=== PATIENT | female | born 1980 | race Caucasian/White ===

== ENCOUNTER 2024-01-29 13:39 | Outpatient (CLI) | payer BC, SELFPAY ==
[2024-01-29 18:29] LABS: Basophils # 0.1 K/mm3 (0-0.2); Basophils % 0.6 % (0.1-2.0); Eosinophils # 0.2 K/mm3 (0.0-0.4); Hematocrit 40.6 % (37.0-47.0); Hemoglobin 12.4 g/dL (12.2-16.2); Lymphocytes # 2.1 K/mm3 (0.7-4.5); Lymphocytes % 25.3 % (10-50); Mean Corpuscular HGB Conc 30.6 g/dL (31.8-35.4); Mean Corpuscular Volume 84.9 fl (81-99); Monocytes # 0.3 K/mm3 (0.1-1.0); Monocytes % 3.7 % (1.7-9.3); Neutrophils # 5.6 K/mm3 (1.8-7.8); Neutrophils % 68.4 % (37.0-80.0); Platelet Count 267 K/mm3 (142-424); Red Blood Count 4.78 M/mm3 (4.20-5.40); Red Cell Distribution Width 15.9 % (11.5-17.5); White Blood Count 8.2 K/mm3 (4.8-10.8)
[2024-01-29 18:56] LABS: Alanine Aminotransferase 20 U/L (12-78); Albumin Level 3.8 g/dl (3.5-5.0); Albumin/Globulin Ratio 1.2 (1.1-1.8); Alkaline Phosphatase 70 U/L (38-126); Aspartate Amino Transferase 27 U/L (14-36); Bilirubin,Total 0.4 mg/dl (0.2-1.3); Blood Urea Nitrogen 16 mg/dl (7-17); Carbon Dioxide 29 mmol/L (22.0-30.0); Chloride 105 mmol/L (98-107); Chol/HDL Ratio 4.1 (1-3.5); Cholesterol 211 mg/dl (140-200); Estimated Glomerular Filt Rate 79 ml/min (>60); GFR (African American) 96 ML/MIN (>60); Globulin 3.2 g/dL (1.3-3.2); Glucose 92 mg/dl (74-100); HDL Cholesterol 51 mg/dl (40-60); Sodium 136 mmol/L (136-145); Triglycerides 150 mg/dl (30-150); VLDL Cholesterol 30 mg/dL (0-40)
[2024-01-29 19:07] LABS: Direct LDL Cholesterol 123.36 mg/dL (100-129)
[2024-01-29 19:16] LABS: Hemoglobin A1C 5.4 % (4.0-6.0)
[2024-01-29 19:24] LABS: Thyroid Stimulating Hormone 1.53 uIU/mL (0.465-4.68)
== END 2024-01-29 23:59 | disposition home or self-care (01) ==
LOC: LAB.DROPOF 02-01 12:41
PROVIDERS: PCP Family Medicine; Visit Provider Family Medicine
DX: R53.83 Other fatigue (principal); I10 Essential (primary) hypertension; R73.03 Prediabetes; E66.3 Overweight; Z68.41 Body mass index [BMI] 40.0-44.9, adult
CPT/HCPCS: 80050; 80053; 80061; 83036; 84443; 85025

== ENCOUNTER 2024-02-17 12:37 | Outpatient (CLI) | payer BC, SELFPAY ==
--- NOTE | 2024-02-17 12:53 | CA_ITS ---
APPROVED REPORT EXAM: Comprehensive 2D, Doppler, and color-flow Echocardiogram Precision Lens Polisher: Mary Alice Sol, ELIZABETH, RVS Ht: 5 ft 2 in Wt: 247lbs BSA: 2.09 BP: 120/80 mmHg Indications: Murmur, HTN, Migraines 2D Dimensions Left Atrium 3.21 cm F: 2.7 - 3.8 LA Volume 73.30 mL LA Volume Index [id number] mL/m2 (M/F) 16-34 M-Mode Dimensions RVDd 2.38 cm (0.9-2.6) LA Diam 3.80 cm (1.9-4.0) LVDd 4.02 cm (3.5-5.7) LVDs 2.31 cm (3.5-5.7) IVSd 0.87 cm (0.6-1.1) PWd 0.77 cm (0.6-1.1) EF (Teich) 74.20% EPSs 0.37 cm FS 42.50% EDV (Teich) 70.80 mL TAPSE 2.21 (<1.7) ESV (Teich) 18.30 mL LV Diastology E Decel Time 213 (160-240 msec) E/A Ratio 2.09 MED A' 10.80 cm/s LAT A' 9.70 cm/s Aortic Valve BRAD Index 1.19 cm2/m2 AoV Peak Angel. 144.0 (50-130 cm/s) AO Peak GR. 8.30 mmHg AO Mean GR. 4.10 (<5 mmHg) AO VTI 28.8 (18-25 cm) BRAD (VTI) 2.55 (2.5-4.5 cm2) Mitral Valve MV A Velocity 47.0 (40-130 cm/s) E/A Ratio 2.09 Pulmonary Valve RI End VMAX 149.0 cm/s Tricuspid Valve TR P. Velocity 249.00 cm/s RAP Estimate 10.00 mmHg RVSP 34.80 mmHg Left Ventricle The left ventricle is normal size. The left ventricular systolic function is normal. The left ventricular ejection fraction is within the normal range. Proximal septal thickening is noted. IVSD 1.3 cm. No evidence of LVOT obstruction at rest. There is normal LV segmental wall motion. The left ventricular diastolic function is normal. LVEF is 55%. Right Ventricle The right ventricle is normal size. The right ventricular systolic function is normal. Atria The left atrium size is normal. The right atrium size is normal. There is no Doppler evidence of interatrial shunt. Aortic Valve Aortic valve opens well. There is no aortic valvular stenosis. No aortic regurgitation is present. Mitral Valve The mitral valve is normal in structure. No evidence of systolic anterior motion of the mitral valve leaflets. No evidence of mitral valve stenosis. Mild mitral regurgitation. Tricuspid Valve The tricuspid valve leaflets are thin and pliable. Mild tricuspid regurgitation. RVSP is 20-25 mmHg. Pulmonic Valve The pulmonary valve is normal in structure. Trace pulmonic regurgitation. Great Vessels The aortic root is normal in size. The ascending aorta is not well-visualized. IVC is normal in size and collapses >50% with inspiration. Pericardium There is no pericardial effusion. Other Information Study Quality: Adequate Conclusion Normal biventricular systolic function. Proximal septal thickening is present. IVSD 1.3 cm. Mild MR, mild TR. No evidence of LVOT obstruction at rest. No evidence of systolic anterior motion (АЛЕКСАНДР) of the MV leaflets. In the setting of asymmetric increased LV wall thickness, further evaluation with cardiac MRI (HCM protocol) is suggested to evaluate for HCM. Electronically signed by : Jailyn Perry MD 02/18/2024 11:48:39
== END 2024-02-17 23:59 | disposition home or self-care (01) ==
PROVIDERS: PCP Family Medicine; Visit Provider Family Medicine
DX: R01.1 Cardiac murmur, unspecified (principal)
CPT/HCPCS: 93306

== ENCOUNTER 2024-03-09 09:46 | Outpatient (CLI) | payer BC, SELFPAY ==
[2024-03-09 10:28] LABS: Blood Urea Nitrogen 14 mg/dl (7-17); Estimated Glomerular Filt Rate 79 ml/min (>60); GFR (African American) 96 ML/MIN (>60)
--- NOTE | 2024-03-09 10:32 | MR_ITS ---
APPROVED REPORT Md Ophthalmologist: CLINICAL INDICATION Increased LV wall thickness. HCM evaluation. TECHNIQUE Image Acquisition: Cardiac magnetic resonance (CMR) was performed on Siemens Espree MRI 1.5T scanner. Software platform sequences were performed using the [employer] MR B19 platform. A set of three-plane, low-resolution, large [id number] localizers were initially acquired. Then axial, coronal, sagittal TrueFISP, as well as axial HASTE images, were obtained. These were followed by gated TrueFISP breathold cinematic sequences obtained in the short axis with 8 mm slices and 2 mm gaps, 2-chamber (vertical long axis), 3-chamber, 4-chamber (horizontal long axis). A bolus of contrast was injected intravenously with first-pass sequences obtained in the short axis and four-chamber planes. After approximately 10 minutes, a TI associate faculty sequence was performed to determine the optimal TI time. Using the optimized TI time, delayed contrast enhancement segmented inversion???recovery TurboFLASH sequences were obtained in the short axis, 2-chamber, 3-chamber, and 4-chamber projections. 2D-velocity phase mapping was performed. Functional parameters were calculated by offline analysis on an independent workstation ([employer], [employer] [employer]). Contrast: ProHance??? (Gadoteridol) FINDINGS MORPHOLOGY AND FUNCTION Left ventricle: The left ventricle is normal in size. The indexed left ventricular end-diastolic volume (LVEDVi) is 52 ml/m2 (reference range 57-105 ml/m2 in males, 56-96 ml/m2 in females). Normal left ventricular systolic function is present. There is mild asymmetric increase in proximal septal thickness, measuring up to 13 mm. there are no regional wall motion abnormalities noted. LVEF is calculated at 64.5% (reference range 57-77%). Right ventricle: The right ventricle is normal in size. The indexed right ventricular end-diastolic volume (RVEDVi) is 46 ml/m2 (reference range 61-121 ml/m2 in males, 48-112 ml/m2 in females). Normal right ventricular systolic function is present. RVEF is calculated at 51.0% (reference range 52-72% in males, 51-71% in females). Atria: The left atrium is normal in size. The maximum indexed left atrial volume is 25 ml/m2 (reference range 26-52 ml/m2 in males, 27-53 ml/m2 in females). The right atrium is normal in size. The maximum indexed right atrial volume is 18 ml/m2 (reference range 18-90 ml/m2). Aorta: The diameter of the aortic annulus is normal, measuring 22 mm (coronal view reference range 21-30 mm in males, 19-27 mm in females). The diameter of the aortic sinus is normal, measuring 28 mm (coronal view reference range 25-42 mm in males, 24-36 mm in females). The diameter of the sinotubular junction is normal, measuring 21 mm (coronal view reference range 18-32 mm in males, 18-28 mm in females). The diameters of the ascending and descending thoracic aorta are normal. Main pulmonary artery: The main pulmonary artery diameter is normal. Pericardium: The pericardial thickness is normal. The pericardial thickness measures 1.0 mm (normal < 4.0 mm). There is no pericardial effusion. VALVES The valvular morphologies in the visualized sequences appear normal. There is no significant valvular stenosis or regurgitation of the mitral, aortic, tricuspid, or pulmonic valve noted visually. Systolic anterior motion of the mitral valve is not visualized. Ratio of pulmonary to systemic flow, Qp:Qs ratio could not be calculated in the study due to technical limitations. TISSUE CHARACTERIZATION Resting Perfusion: Normal myocardial blood flow at rest. No evidence of resting hypoperfusion. Myocardial Fibrosis and/or edema: There is a minimal patchy late gadolinium enhancement is noted in the basal septal LV wall, occupying < 2% of the total myocardial thickness. T2-weighted imaging demonstrates no evidence of myocardial edema or inflammation. OTHER No other significant findings are noted. However, this exam is focused on the cardiac structure and function. IMPRESSION Normal LV size with normal LV systolic function. LVEDVi= 52 ml/m2 and LVEF= 64.5%. Mild asymmetric increase in proximal septal thickness, measuring up to 13 mm. there are no regional wall motion abnormalities noted. Normal RV size with normal RV systolic function. RVEDVi= 46 ml/m2 and RVEF= 51.0%. No atrial enlargement. Minimal patchy late gadolinium enhancement is noted in the basal septal LV wall, occupying < 2% of the total myocardial thickness. These findings are nonspecific in this clinical context. Perfusion analysis demonstrates normal blood flow at rest with no evidence of resting hypoperfusion. Overall, this CMR demonstrates normal biventricular size and systolic function. There is mild asymmetric increase in proximal septal thickening, along with minimal patchy LGE in the region. Findings do not meet CMR criteria for HCM (i.e. LV wall thickness < 15 mm). Nonetheless, in the setting of presence of LGE, repeat CMR evaluation in 3-5 years is suggested to evaluate for progression of LV wall thickness and progression of LGE. COMPARISON None CRITICAL RESULT None COMMUNICATION Per this written report The findings of this cardiac MR were reviewed, reported, and signed by Gary Perry MD (Slp). Conclusion Electronically signed by : Jailyn Perry MD 03/17/2024 12:18:20
--- NOTE | 2024-03-09 10:38 | CA_ITS ---
APPROVED REPORT Exam: Exercise Treadmill Technologist: Nena Chase Ht: 5 ft 2 in Wt: 246 lbs BSA: 2.09 m2 HR: 74 bpm BP: 119/71 mmHg Indications: Chest pain, dyspnea, MRI LV wall thickness Medical History Medications: Diazepam,,,,, Citalopram,,,,, Ibuprofen,,,,, Stress Test Details Test: Nigel HR Resting HR: 79 bpm Max Heart Rate (APMHR): 179 bpm Max HR Achieved: 174 bpm Target HR (85% APMHR): 152 bpm % of APMHR: 97 Recovery HR: 107 bpm HR response to stress: Normal HR response to stress BP Resting BP: 119.0/71.0 mmHg Max BP: 162.0/78.0 mmHg Recovery BP: 129.0/66.0 mmHg BP response to stress: Normal blood pressure response to stress. ECG Resting ECG: Normal sinus rhythm Stress ECG: No significant ST changes Arrhythmia: PVCs Clinical Exercise duration: 06:49 min Highest Stage Achieved: Exercise capacity: 7.0 METs Stress ECG Conclusion Patient exercised 6:49 on Nigel Protocol. Test stopped due to shortness of air. Symptoms: No chest pain Arrhythmias/Ectopy: Rare PVC ST-T Changes: Normal ST response to exercise Conclusion: Normal GXT. GXT only (no imaging). Test Summary REST . . . . . . . Sitting REST . . . . . . . Standing REST 04:38 0.0 0.0 79 . 119/ 71 . . Stage 1 01:00 10.0 1.7 115 . . . . Stage 1 02:00 10.0 1.7 136 . . . . Stage 1 03:00 10.0 1.7 144 . 142/ 80 . . Stage 2 01:00 12.0 2.5 155 . . . . Stage 2 . . . . . . . Shortness of Breath Stage 2 02:00 12.0 2.5 162 . . . . Stage 2 03:00 12.0 2.5 165 . 162/ 78 . . Stage 3 00:49 14.0 3.4 173 . . . Stop exercise at 06:49 RECOVERY 01:00 0.0 0.0 152 . . . . RECOVERY 02:00 0.0 0.0 132 . . . . RECOVERY 03:00 0.0 0.0 117 . . . . RECOVERY 04:00 0.0 0.0 108 . 133/ 67 . . RECOVERY 05:00 0.0 0.0 107 . 133/ 67 . . RECOVERY 05:25 0.0 0.0 105 . 129/ 66 . . Electronically signed by : Jailyn Perry MD 03/10/2024 13:21:16
[2024-03-09] MEDS: SODIUM CHLORIDE 0.9% 10ML SYR (RAD ONLY) 10 ML IV (12:51)
[2024-03-09] MEDS: SODIUM CHLORIDE 0.9% 50ML BAG 50 ML IV (12:51)
[2024-03-09] MEDS: GADOTERIDOL INJ 20ML SYRINGE 22 ML IV (12:51)
== END 2024-03-09 23:59 | disposition home or self-care (01) ==
PROVIDERS: PCP Family Medicine; Visit Provider Nurse Practitioner Family
DX: R07.89 Other chest pain (principal); R06.00 Dyspnea, unspecified; R93.1 Abnormal findings on diagnostic imaging of heart and coronary circulation; R73.03 Prediabetes; I10 Essential (primary) hypertension
CPT/HCPCS: 36415; 75561; 82565; 84520; 93017; 93018; A9576

== ENCOUNTER 2024-08-01 15:55 | Outpatient (CLI) | payer BC, SELFPAY ==
[2024-08-01 20:20] LABS: Albumin Level 4.5 g/dl (3.5-5.0); Chloride 102 mmol/L (98-107); Potassium 4.7 mmoL/L (3.5-5.1); Sodium 135 mmol/L (136-145)
[2024-08-01 20:22] LABS: Blood Urea Nitrogen 16 mg/dl (7-17); Estimated Glomerular Filt Rate 69 ml/min (>60); GFR (African American) 83 ML/MIN (>60)
[2024-08-01 20:23] LABS: Alanine Aminotransferase 25 U/L (12-78); Albumin/Globulin Ratio 1.7 (1.1-1.8); Alkaline Phosphatase 86 U/L (38-126); Anion Gap 10.7 mEq/L (5-15); Aspartate Amino Transferase 27 U/L (14-36); Bilirubin,Total 0.2 mg/dl (0.2-1.3); Calcium 9.2 mg/dl (8.4-10.2); Carbon Dioxide 27 mmol/L (22.0-30.0); Cholesterol 197 mg/dl (140-200); Globulin 2.6 g/dL (1.3-3.2); Glucose 85 mg/dl (74-100); Total Protein,Serum 7.1 g/dl (6.3-8.2); Triglycerides 141 mg/dl (30-150); VLDL Cholesterol 28 mg/dL (0-40)
[2024-08-01 20:24] LABS: Chol/HDL Ratio 4.2 (1-3.5); HDL Cholesterol 47 mg/dl (40-60)
[2024-08-01 20:34] LABS: Direct LDL Cholesterol 104.95 mg/dL (100-129)
== END 2024-08-01 23:59 | disposition home or self-care (01) ==
LOC: LAB.DROPOF 08-02 15:24
PROVIDERS: PCP Family Medicine; Visit Provider Family Medicine
DX: R07.89 Other chest pain (principal); I10 Essential (primary) hypertension
CPT/HCPCS: 80053; 80061

== ENCOUNTER 2024-12-26 15:45 | Outpatient (CLI) | payer BC, SELFPAY ==
[2024-12-26 19:49] LABS: Hematocrit 36.0 % (37.0-47.0); Hemoglobin 11.3 g/dL (12.2-16.2); Immature Granulocytes % 0.3 %; Mean Corpuscular HGB Conc 31.4 g/dL (31.8-35.4); Mean Corpuscular Hemoglobin 25.3 pg (27.0-31.2); Mean Corpuscular Volume 80.7 fl (81-99); Nucleated Red Blood Cells % 0 %; Platelet Count 298 K/mm3 (142-424); Red Blood Count 4.46 M/mm3 (4.20-5.40); Red Cell Distribution Width-SD 43.8 fL; White Blood Count 12.6 K/mm3 (4.8-10.8)
[2024-12-26 20:17] LABS: Chloride 99 mmol/L (98-107)
[2024-12-26 20:18] LABS: Albumin Level 4.3 g/dl (3.5-5.0); Potassium 4.0 mmoL/L (3.5-5.1); Sodium 136 mmol/L (136-145)
[2024-12-26 20:20] LABS: Blood Urea Nitrogen 18 mg/dl (7-17); Creatinine,Serum 0.70 mg/dl (0.52-1.04); Estimated Glomerular Filt Rate 92 ml/min (>60); GFR (African American) 111 ML/MIN (>60)
[2024-12-26 20:21] LABS: Alanine Aminotransferase 23 U/L (12-78); Albumin/Globulin Ratio 1.8 (1.1-1.8); Alkaline Phosphatase 74 U/L (38-126); Anion Gap 13.0 mEq/L (5-15); Aspartate Amino Transferase 25 U/L (14-36); Bilirubin,Total 0.4 mg/dl (0.2-1.3); Calcium 9.1 mg/dl (8.4-10.2); Carbon Dioxide 28 mmol/L (22.0-30.0); Globulin 2.4 g/dL (1.3-3.2); Glucose 110 mg/dl (74-100); Total Protein,Serum 6.7 g/dl (6.3-8.2)
[2024-12-26 20:55] LABS: Thyroid Stimulating Hormone 1.71 uIU/mL (0.465-4.68)
[2024-12-27 09:54] LABS: Iron 59 ug/dL (37-170)
[2024-12-27 10:03] LABS: Total Iron Binding Capacity 341 ug/dL (265-497)
[2024-12-27 10:30] LABS: Ferritin 11.6 ng/ml (6.24-137)
--- OUTSIDE RECORDS SUMMARY | 2024-12-27 13:34 | XMS_ITS | Clinical Summary ---
Author Organization [facility] Address [address] [place] [address] Care Team Providers Care Licensed Insurance Sales Agent Name Role Phone Jael Calderon MD Primary Care Provider [phone] Allergies No known active allergies Medications lisinopril-hydrochl orothiazide (PRINZIDE,ZESTORETI C) 10-12.5 MG per tablet Take 1 tablet by mouth Daily. 4 Active citalopram (CeleXA) 40 MG tablet Take 1 tablet by mouth Daily. 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 May repeat in 2 hours if needed Active ibuprofen (ADVIL,MOTRIN) 800 MG tablet Take 1 tablet by mouth Every 8 (Eight) Hours As Needed for Mild Pain. 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 She admits to taking more ibuprofen than recommended. We discussed appropriate dosing and risk associated with taking too much. Can add tylenol with ibuprofen. Declines contraception for menstrual control. Hx BTL RTO for U/S Visit for oral contraceptive prescription 2021 Overview (07/25/2021): Rx Slynd to regulate menses. Retroverted uterus 01/24/2021 Mass of left ovary 01/23/2021 Overview (07/25/2021): U/s 01/18/2021 with small 5 x 8 mm echogenic non-shadowing nodule left ovary. Resolved on u/s 07/25/2021 Assessment & Plan (01/24/2021 10:56 AM EDT): Repeat u/s scheduled for 6 months. DUB (dysfunctional uterine bleeding) 12/13/2020 Overview (07/25/2021): Pt with irregular menses and weight gain since delivery Jun 2020; Onset heavy bleeding and clots and tissue on 12/10/20. Rx Provera 10 mg 14 days on off. U/s 01/23/21 normal except for small IM fibroid. Labs c/w anovulation. May wish to check fasting insulin. 07/25/2021; Pt took provera for three cycles with resolution of AUB. Is now having monthly menses; last 5-7 days. Can try Slynd to prevent recurrence of DUB. Assessment & Plan (08/22/2021 4:50 PM EDT): Just completed first package of Slynd. We will need 2-3 cycles to see if improves. Assessment & Plan (07/25/2021 11:04 AM EST): Wants to start SYLYD; return in 3 months for f/u. Assessment & Plan (01/24/2021 10:55 AM EDT): After first 14 days of Provera pt had 5 -6 day w/d menses; heavy for 2 days. 01/24/21; currently on Day 7 of second cycle of Provera. No BTB. Pt declines Mirena IUD at this time and Cant take OCs due to HTN and age. S/p prior BTL. Pt wants to watch menses and see if return to normal. Would recommend Mirena IUD for care home treatment of DUB> Weight gain 12/13/2020 Overview (12/13/2020): 60 lb weight gain since . Recommended low carb diet and exercise. Screening for cervical cancer 08/02/2020 Overview (08/29/2021): Pap done 02/23/2020. Normal 08/22/2021 Pap smear with ASCUS. HPV high risk pool negative. Can repeat in 1 year. Assessment & Plan (07/25/2021 11:07 AM EST): Return for annual and Pap smear. Ectopic breast tissue 08/02/2020 Overview (08/02/2020): Patient had bilateral engorgement of axillary breast tissue July 2020. Resolved spontaneously. History of female sterilization 05/24/2020 Overview (10/11/2020): KMAP permit 05/24/2020 Laparoscopic bilateral tubal banding on 09/11/2020 at [facility]; normal pelvis. No evidence of endometriosis. Assessment & Plan (08/09/2020 9:57 AM EDT): Preop 09/01. Assessment & Plan (08/02/2020 11:19 AM EDT): Schedule lap BTL 8 wks post if BP controlled. Essential hypertension 02/23/2020 Overview (08/30/2020): Patient stopped medications July 2019. Post Gestational HTN; On Procardia XL 30 mg bid. Assessment & Plan (08/22/2021 4:49 PM EDT): BP stable on Procardia XL 60 mg daily. Tolerating well. She will continue with that until she can be seen by PCP. Morbid obesity with BMI of 40.0-44.9, adult Overview (07/25/2021): BMI 37> 39> 41 Anxiety Overview (08/02/2020): 08/02/2020; 4 weeks . Wishes to restart Celexa 20 mg daily Assessment & Plan (08/09/2020 9:58 AM EDT): Improved on Celexa 20 mg daily. HTN (hypertension) Overview (07/25/2021): Has been stable on Procardia XL 30 mg bid since post period. Wishes to continue. 07/25/2021 Pt has not seen PCP and ran out of Procardia XL. BP 166/110 today; Restart Procardia XL 60 mg daily; F/u with PCP. Depression Overview (07/25/2021): Request refill of Celexa Mixed stress and urge urinary incontinence Overview (07/25/2021): Has frequency and urgency with stress UI. Needs appt with Urology. States has had some improvement with taking mother's oral medication. Assessment & Plan (08/22/2021 4:51 PM EDT): Requests referral to see urology. Resolved Problems Problem Noted Date Diagnosed Date Resolved Date Ectopic breast tissue 07/19/20202020 Overview (07/19/2020): Right 3 x4 cm. Preeclampsia in period 07/12/2020 01/29/2024 Overview (08/09/2020): Severe hypertension day #1. Treated with 24 hours magnesium sulfate; Procardia XL 60 mg twice daily. Decreased to once daily. > 2x daily 08/09/20; Decreased to 30 mg bid. Assessment & Plan (01/24/2021 10:37 AM EDT): BP stable on Procardia XL 30 mg bid. Assessment & Plan (08/16/2020 9:59 AM EDT): HTN is stable; pt was unable to get Procardia XL 30 mg from Pharmacy; Resent 30mg bid. Monitor BP at home. RTC 2 wk. Assessment & Plan (07/26/2020 10:34 AM EST): Improving; Pt states BP stable at home on Procardia XL 60 mg daily. Will continue with same dose. Recheck BP one week. Spontaneous vaginal delivery 07/09/2020 08/02/2020 Overview (08/02/2020): IOL; 07/09/2020; at 37 wks; Gestational hypertension 07/08/2020 AMA (advanced maternal age) multigravida 35+ 10/11/2020 Overview (07/08/2020): Late care at 17 wks; Declined screening. GBS (group B Streptococcus c praful), +RV culture, currently 07/03/2020 12/13/2020 Gestational hypertension, third trimester 06/28/2020 12/13/2020 Overview (06/28/2020): BP>140/90 in office with 1+ proteinuria and edema. Assessment & Plan (07/05/2020 12:23 PM EST): IOL at 37 wks if not severe; Induction scheduled 07/08/2020 at 5 PM COVID screen 219 at 9:45 AM Alysheba Excessive growth affec ting management of in third trimester 06/21/2020 10/12/19 Overview (06/21/2020): 80% ; AC 90%; at 35 wks. Assessment & Plan (06/21/2020 11:44 AM EST): IOL at 39 wks. Excessive growth affec ting management of in third trimester 05/24/2020 10/12/19 Overview (05/24/2020): 74 % at 30 wk; G1 6#4 at 36 6/7 wk 1 hr Glucose elevated; could not tolerate 3 hr GTT./ presyncope; vomiting. Will need to monitor BGs. Diet controlled gestational diabetes mellitus (GDM), antepartum 05/24/2020 10/11/2020 Overview (06/14/2020): Gestational diabetes A1 Received diabetic teaching and diet. Monitor fasting and 2-hour postprandial FS BGS. Iron deficiency anemia marino voss to inadequate dietary iron intake 05/24/2020 Overview (05/24/2020): 31%; On FE SO4 325 mg bid. History of delivery 02/23/2020 10/11/2020 Overview (05/24/2020): 36 6/7 weeks male 6 pounds 4 ounces on 04/30/2014 02/23/2020 10/11/2020 Overview (02/23/2020): Maternal blood type a positive. Late care/irregular periods; dates by 17-week ultrasound. PT had mild COVID infection prior to . Obesity (BMI 35.0-39.9 without comorbidity) 02/23/2020 10/11/2020 Overview (08/30/2020): BMI 37 Family History Medical History Relation Name Comments Hypertension Father Dev Hypertension Maternal Grandmother Sunitha Breast cancer Other 1 Maternal Great Aunt Hypertension Paternal Grandfather Dads dad Colon cancer Neg Hx Ovarian cancer Neg Hx Uterine cancer Neg Hx Relation Name Status Comments Father Dev Maternal Grandmother Sunitha Other 1 Maternal Great Aunt Alive Other 2 Maternal Great AUnt Alive Paternal Grandfather Dads dad Social History Tobacco Use Types Packs/Day Years Used Date Smoking Tobacco: Never Smokeless Tobacco: Never Tobacco Cessation:Counseling Given: Not Answered Alcohol Use Standard Drinks/Week Comments Not Currently 0 (1 standard drink = 0.6 oz pure alcohol) I rarely every drink. If i do its like 1 beer. PHQ-2 Answer Date Recorded Retired Total Score 0 08/02/2020 Hunger Vital Sign Answer Date Recorded Within the past 12 months, y ou worried that your food would run out before you got the money to buy more. Never true 06/28/19 21 Within the past 12 months, t he food you bought just didn't last and you didn't have money to get more. Never true 06/28/2020 PRAPARE - Transportation Answer Date Re corded In the past 12 months, has l ack of transportation kept you from medical appointments or from getting medications? No 06/18 In the past 12 months, has l ack of transportation kept you from meetings, work, or from getting things needed for daily living? No 06/28/2020 [place] Depression Scale Answer Date Recorded [place] Depression Scale Total 3 07/10/2020 The thought of harming myself has occurred to me . Never 07/10/2020 Abuse Screen Answer Date Recorded Unsafe at Home or Work/School Not on file Feels Threatened by Someone? Not on file 02/2023 Does Anyone Keep You from Co ntacting Others or Doint Things Outside the Home? Not on file 02/24/2023 Physical Sign of Abuse Present Not on file 1 Housing Stability Answer Date Recorded Current Living Arrangements Not on file 02/15 Potentially Unsafe Housing Conditions Not on jeffry e 02/24/2023 Family and Community Support Answer Jarad e Recorded Help with Day-to-Day Activities Not on file 02/24/2023 Lonely or Isolated Not on file 02/24/2023 Employment Answer Date Recorded Do you want help finding or keeping work or a stefania b? Not on file 02/24/2023 Disabilities Answer Date Recorded Concentrating, Remembering, or Making Decisions Difficulty Not on file 02/24/2023 Doing Errands Independently Difficulty Not on fi le 02/24/2023 Education Answer Date Recorded Help with school or training? 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 on file Not on file Last Filed Vital Signs Vital Sign Reading Time Taken Comments Blood Pressure 122/80 01/26/2024 11:34 AM EDT Pulse 98 07/13/2020 7:45 AM EST Temperature 36.3 C (97.3 F) 10/11/2020 10:08 AM EDT Respiratory Rate 20 07/13/2020 7:45 AM EST Oxygen Saturation 98% 07/13/2020 7:45 AM EST Inhaled Oxygen Concentration - - Weight 110 kg (243 lb) 01/26/2024 11:34 AM EDT Height 160 cm (5' 3 ) 01/26/2024 11:34 AM EDT Body Mass Index 43.05 01/26/2024 11:34 AM EDT Plan of Treatment Health Maintenance Due Date Last Done Comments ANNUAL PHYSICAL 02/22/2020 COVID-19 Vaccine ( season) 2024 Annual Gynecologic Pelvic and Breast Exam 09/22/2024 09/22/2023 INFLUENZA VACCINE 02/15/2025 02/03/2017, 03/13/2016 MAMMOGRAM 11/22/2025 11/23/2023, 10/26/2023 PAP SMEAR 09/21/2026 09/22/2023, 08/16, 02/24/2020, Additional history exists TDAP/TD VACCINES (2 - Td or Tdap) 05/22/2030 05/22/2020 HEPATITIS C SCREENING Completed 02/23/2020 Pneumococcal Vaccine 0-49 Aged Out No longer eligible based on patient's age to complete this topic Procedures Procedure Name Priority Date/Time Associated Diagnosis Comments MAMMO DIAGNOSTIC DIGITAL TOMOSYNTHESIS LEFT W CAD Routine 11/23/2023 2:18 PM EDT Abnormal mammogram LIQUID-BASED PAP SMEAR WITH HPV GENOTYPING REGARDLESS OF INTERPRETATION, [facility] (YONAS,COR,MAD) Routine 09/22/2023 11:36 AM EDT Women's annual routine gynecological examination HEPATITIS C ANTIBODY Routine 02/23/2020 12:00 PM EDT 17 weeks gestation of from Last 3 Months or Most Recently Relevant to Health Maintenance Results * Mammo Diagnostic Digital Tomosynthesis Left With CAD (11/23/2023 2:18 PM EDT) Anatomical Region Laterality Modality Breast Left Mammography 11/23/2023 2:12 PM EDT Impressions 11/23/2023 2:38 PM EDT 1. Left breast: Asymmetric island of glandular tissue in the 2/3:00 left breast. No suspicious abnormality is seen. As this was the patient's baseline mammogram, recommendation is for follow-up diagnostic left mammogram in 6 months to ensure stability/establish baseline. 2. Today's findings and recommendations were discussed with the patient at the time of the examination by myself. OVERALL ASSESSMENT: BI-RADS Category 3: Probably benign. Recommend short-term follow-up diagnostic left mammogram in 6 months. Physicians Order Diagnostic left mammogram in 6 months. Diagnosis: Short-term follow-up probably benign findings. This report was finalized on 11/23/2023 2:38 PM by Adelia Coffey MD. Narrative 11/23/2023 2:38 PM EDT EXAM: MAMMO DIAGNOSTIC DIGITAL TOMOSYNTHESIS LEFT W CAD, Limited left breast ultrasound- DATE:11/23/2023 2:11 PM INDICATION: 43-year-old female who presents for diagnostic work-up of focal asymmetry in the upper outer quadrant of the left breast on recent baseline screening mammogram. No personal or family history of breast cancer COMPARISON: Comparison is made to study dated 10/26/2023 TECHNIQUE: 2D/3D spot left CC and MLO view as well as 2D/3D left true lateral was obtained. FINDINGS: Left breast: Focal asymmetry in the upper outer quadrant of the left breast centered on the 2/3:00 region to an island of glandular tissue with no discrete mass identified. Targeted sonographic imaging of the left breast was performed by the technologist and myself. Survey sonographic imaging of the upper outer quadrant of the left breast demonstrates normal island of dense glandular tissue centered at the 2/3:00 left breast 6 cm from the nipple. This is thought to correlate with the mammographic appearance. No suspicious abnormality is seen. Adelia Coffey MD IM MAMMOGRAPHY JULIO [facility]AN[facility] Final Result * LIQUID-BASED PAP SMEAR WITH HPV GENOTYPING REGARDLESS OF INTERPRETATION (YONAS,COR,MAD) (09/22/2023 11:36 AM EDT) Reference Lab Report [facility] [address] [place] [address] or [phone] Dipak Mazariegos M.D., Contract Forester PATIENT NAME [facility]ORATORY NO[facility] NELA [facility]IPMAN [phone] [id number] AGE SEX SSN CLIENT REF # [facility]) 43 1980 F [id number] [facility] AKUA SANCHEZ REQUESTING Carleen. [place] [address] REYNOLDSCASSY DATE COLLECTED DATE RECEIVED DATE REPORTED 09/22/2023 09/22/2023 09/25/2023 ThinPrep Pap with Cytyc Imaging DIAGNOSIS: Epithelial cell abnormality. (ASC) Atypical squamous cells of undetermined significance. Professional interpretation rendered by Leonardo De Anda M.D., F.C.A.P. at [facility] [employer], [address] [place] [address]. SPECIMEN ADEQUACY: SATISFACTORY FOR EVALUATION Transformation zone is present. SOURCE OF SPECIMEN: CERVICAL/ENDOCERVI JT SLIDES: 1 CLINICAL HISTORY: Women's annual routine gynecological examination, Irregular menses HPV HR-HPV POOL: Positive The Aptima HPV assay is an in vitro nucleic acid amplification test for the qualitative detection of E6/E7 viral messenger RNA from 14 high risk types of HPV in cervical specimens. The high risk HPV types detected include: 16, 18, 31, 33, 35, 39, 45, 51, 52, 56, 58, 59, 66, 68 HPV Genotyping HPV 16: Negative HPV 18/45: Negative The Aptima HPV 16, 18/45 genotype assay is an in vitro nucleic acid amplification test for the qualitative detection of E6/E7 viral messenger RNA of human papillomavirus (HPV) types 16,18/45 in cervical specimens from women with Aptima HPV positive results. The Aptima HPV 16, 18/45 genotype assay can differentiate HPV 16 from HPV 18 and/or HPV 45, but does not differentiate between HPV 18 and HPV 45. BULBS FARMWORKER: HANK RINCON (ASCP) REVIEWED, DIAGNOSED AND ELECTRONICALLY SIGNED BY: Leonardo De Anda M.D., F.C.A.P. CPT CODES: [id number], [id number], [id number], [id number] 09/25/2023 12:20 PM EDT [facility] ThinPrep Vial Collection / Unknown 09/22/2023 11:36 AM EDT 09/22/2023 11:36 AM EDT Cassy Reynolds APRN PATHOLOGY/CYTOLOGY ORDERA BLES Final Result [facility]
[address] [place] [address], [place] [phone] * Hepatitis C Antibody (02/23/2020 12:00 PM EDT) Hepatitis C Ab Non-Reacti ve Non-Reacti ve 02/23/2020 7:48 PM EDT [facility] Blood Venipuncture / Unknown 02/23/2020 12:00 PM EDT 02/23/2020 12:01 PM EDT Narrative [facility] - 02/23/2020 7:48 PM EDT Results may be falsely decreased if patient taking Biotin. Randy Marshall MD LAB BLOOD ORDERABLES Final Result [facility]
[address] [place] [address], [place] [phone] from Last 3 Months or Most Recently Relevant to Health Maintenance Insurance PPO Advance Directives * CPR (Attempt to Resuscitate) (Latest Code Status on File) Date Activated Date Inactivated Comments 07/09/2020 5:08 PM 07/13/2020 1:53 PM Question Answer Comments Code Status (Patient has no pulse and is not breathing): CPR (Attempt to Resuscitate) Medical Interventions (Patie nt has pulse or is breathing): Full * CPR (Attempt to Resuscitate) Date Activated Date Inactivated Comments 07/08/2020 6:25 PM 07/09/2020 5:08 PM Question Answer Comments Code Status (Patient has no pulse and is not breathing): CPR (Attempt to Resuscitate) Medical Interventions (Patie nt has pulse or is breathing): Full * CPR (Attempt to Resuscitate) Date Activated Date Inactivated Comments 06/28/2020 3:21 PM 06/28/2020 8:27 PM Question Answer Comments Code Status (Patient has no pulse and is not breathing): CPR (Attempt to Resuscitate) Medical Interventions (Patie nt has pulse or is breathing): Full Level Of Support Discussed With: Patient Care Teams Licensed Insurance Sales Agent Relationship Specialty Start Date End Date Jael Calderon MD [address] [place] [address] PCP - General Family Medicine 02/22/20
--- OUTSIDE RECORDS SUMMARY | 2024-12-27 13:34 | XMS_ITS | Clinical Summary ---
Author Organization Healthcare Address [address] [place] [address] Care Team Providers Care Assistant Real Estate Manager Name Role Phone Unavailable Primary Care Provider Unavailabl e Immunizations Immunization Administration Dates Next Due Hep A, Adult 09/14/2017 Zoster, Recombinant 12/21/2017,10/20/2017 Social History Tobacco Use Types Packs/Day Years Used Date Smoking Tobacco: Never Comments Unknown Sex and Gender Information Value Date Recorded Sex Assigned at Not on file Legal Sex Female 6:36 PM EDT Gender Identity Not on file Sexual Orientation Not on file Last Filed Vital Signs Vital Sign Reading Time Taken Comments Blood Pressure 108/72 08/18/2018 8:06 AM EDT Pulse 85 08/18/2018 8:06 AM EDT Temperature - - Respiratory Rate 16 08/18/2018 8:06 AM EDT Oxygen Saturation - - Inhaled Oxygen Concentration - - Weight 85.7 kg (188 lb 15 oz) 08/18/2018 8:06 AM EDT Height 160 cm (5' 3 ) 08/18/2018 8:06 AM EDT Body Mass Index 33.47 08/18/2018 8:06 AM EDT Plan of Treatment Health Maintenance Due Date Last Done Comments [facility]-Depression Screening 1980 [facility]-/Child/Adol SDOH Screenings 1980 [facility]-Varicella Vaccines (1 of 2 - 13+ 2-dose series) 1995 [facility]- SDOH Screenings 2000 [facility]-Adult SDOH Screenings 2000 [facility]-DTaP,Tdap,and Td Vaccines (1 - Tdap) 2001 [facility]-Hepatitis B Vaccines (1 of 3 - 19+ 3-dose series) 2001 HPV Vaccines (1 - 3-dose SCDM series) 2009 [facility]-Pap Smear 06/27/2018 06/27/2015 [facility]-Cervical Cancer Screening 06/27/2020 [facility]-HPV/Cotest 06/27/2020 06/27/2015 [id number] Vaccine ( season) 2024 [facility]-Influenza Vaccine (#1) 2025 [facility]-Zoster Vaccines (2 of 2) 06/04/203210/2017, 10/20/2017 [facility]-Hepatitis A Vaccines Aged Out 09/14/2017 No longer eligible based on patient's age to complete this topic [facility]-HIB Vaccines Aged Out No longer e ligible based on patient's age to complete this topic [facility]-IPV Vaccines Aged Out No longer e ligible based on patient's age to complete this topic [facility]-Pneumococcal Vaccine: Pediatrics (0 to 5 Years) and At-Risk Patients (6 to 49 Years) Aged Out No longer eligible b ased on patient's age to complete this topic [facility]-Rotavirus Vaccines Aged Out No lo nger eligible based on patient's age to complete this topic Procedures Procedure Name Priority Date/Time Associated Diagnosis Comments CYTO DATA CONVERSION Routine 06/27/2015 12:00 AM EST from Last 3 Months or Most Recently Relevant to Health Maintenance Results * Cytology (06/27/2015 12:00 AM EST) 06/27/2015 06/28/2015 9:1 5 AM EST Narrative [facility] - 07/02/2015 4:14 PM EST [facility] MR #: [id number] [place] [address] 1980 (Age: 35) FW Collect Date: 06/27/2015 00:00 Receipt Date: 06/28/2015 09:15 Page 1 DEPARTMENT OF PATHOLOGY AND LABORATORY MEDICINE CYTOPATHOLOGY REPORT Email: [email or web address] [phone] ATTENDING MD/Practitioner: Nathanael Calderon MD Service: [facility] Location[facility] Reported: 07/02/2015 16:14 Collected: 06/27/2015 00:00 INTERPRETATION A. THIN PREP (CERVICAL/VAGINAL): NEGATIVE FOR INTRAEPITHELIAL LESION OR MALIGNANCY. SATISFACTORY FOR EVALUATION; ENDOCERVICAL/ TRANSFORMATION ZONE COMPONENT PRESENT. Slide scanned and imaged by [employer] ThinPrep Imaging System with manual review of all selected martin. Electronically Signed Out By HANK Dunn (ASC) HANK Dunn (ASCP) Cervical cytology is a screening test primarily for squamous cancers and precursors and has associated false negative and positive results. New technologies such as liquid based sampling may decrease but will not eliminate all false negative results. Regular screening and follow-up of unexplained clinical signs and symptoms are recommended to minimize false negative results. Please see the ASCCP website (www.asccp.org) for followup recommendations. If HPV testing was requested, correlation with the results is suggested (please call Microbiology at [phone] for results). CLINICAL INFORMATION: Menstrual History: Cyclic Date of Last Menstrual Period: Unknown Contraceptive History: control pills Other Clinical Conditions: Abnormal pap results elsewhere Date and code not provided If ASCUS and > 24 years of age, HPV/DNA testing requested. SPECIMEN DESCRIPTION: A: THIN PREP (CERVICAL/VAGINAL) THIN PREP PROCESS CELLULAR ENHANCEMENT ICD: F: A; DX IMAGE 79185 SNOMED CODES: A; [id number] In cases where a pathologist has signed out the report, the service has been rendered in part by a resident. The signing pathologist has performed and is responsible for the reported pathologic evaluation. Jael Calderon MD LAB PATHOLOGY ORDERABLES Shaina mora Result [facility] from Last 3 Months or Most Recently Relevant to Health Maintenance
--- OUTSIDE RECORDS SUMMARY | 2024-12-27 13:34 | XMS_ITS | Encounter Summary ---
Author Organization Healthcare Address [address] [place] [address] Care Team Providers Care Pegger Dobby Looms Name Role Phone Unavailable Primary Care Provider Unavailabl e Encounter Details Date Type Department Care Team (Late st Contact Info) Description 01/29/2023 Outside Procedure External Location [address] [place] [address] Provider, [facility] Social History Tobacco Use Types Packs/Day Years Used Date Smoking Tobacco: Never Comments Unknown Sex and Gender Information Value Date Recorded Sex Assigned at Not on file Legal Sex Female 6:36 PM EDT Gender Identity Not on file Sexual Orientation Not on file documented as of this encounter Plan of Treatment Not on file documented as of this encounter Procedures Procedure Name Priority Date/Time Associated Diagnosis Comments CT ABDOMEN PELVIS W IV CONTRAST 01/29/2023 4:09 PM EDT documented in this encounter Results * CT Abdomen Pelvis w IV Contrast (01/29/2023 4:09 PM EDT) Anatomical Region Laterality Modality Abdomen, Pelvis Computed Tomogra phy 01/29/2023 4:09 PM EDT Narrative 01/29/2023 6:35 PM EDT [address] [address] Name: NELA VILLELA Exam Date: 01/29/2023 : 1980 Age 42 Gender: F Physician: SHYAM DIALLO Facility: [facility] Facility HSV: Outpatient Exam: CT ABD PEL W (IV CONT ONLY) FINAL REPORT TECHNIQUE: After the administration of oral and intravenous contrast, axial images were obtained through the abdomen and pelvis by computed tomography. The study was performed with techniques to keep radiation dose as low as reasonably achievable, (ALARA). Individual dose reduction techniques using automated exposure control or adjustment of mA and/or kV according to the patient's size were employed. CLINICAL HISTORY: PELVIC PAIN, RECTAL BLEEDING X THIS AM. FINDINGS: Lung bases are clear. Liver is unremarkable. No solid intrahepatic mass is seen. No radiopaque gallstones. No biliary ductal dilatation. Spleen is unremarkable. Pancreas appears normal. No pancreatic ductal dilatation. Kidneys and ureters appear unremarkable. No solid intra-renal mass is seen. No significant bowel wall thickening. No free air. No significant stranding seen in the mesentery. Appendix is not identified but there is no inflammatory process in the right or quadrant. Mild colonic stool burden. Aorta is normal caliber and there is a mild amount of atherosclerotic calcifications noted in the aorta and major branch vessels. Genital organs are unremarkable. Urinary bladder is normal. No acute osseous findings. No lymphadenopathy. IMPRESSION: No acute abnormality of the abdomen/pelvis. Mild colonic stool burden. Authenticated and [facility] Dictated By: Dipak Galan Transcribed By: Transcribed On: 01/29/2023 6:24 PM Electronically signed by: Dipak Galan 01/29/2023 Thank you for referring NELA VILLELA to [facility]. Legally authenticated by EMMETT Barry 2023-01-29 18:24:10 Procedure Note Provider, Generic Alvin - 01/29/2023 [place] [id number] Name: NELA VILLELA Exam Date: 01/29/2023 : 1980 Age 42 Gender: F Physician: SHYAM DIALLO Facility: [facility] Facility HSV: Outpatient Exam: CT ABD PEL W (IV CONT ONLY) FINAL REPORT TECHNIQUE: After the administration of oral and intravenous contrast, axial images were obtained through the abdomen and pelvis by computed tomography. The study was performed with techniques to keep radiation dose as low as reasonably achievable, (ALARA). Individual dose reduction techniques using automated exposure control or adjustment of mA and/or kV according to the patient's size were employed. CLINICAL HISTORY: PELVIC PAIN, RECTAL BLEEDING X THIS AM. FINDINGS: Lung bases are clear. Liver is unremarkable. No solid intrahepatic mass is seen. No radiopaque gallstones. No biliary ductal dilatation. Spleen is unremarkable. Pancreas appears normal. No pancreatic ductal dilatation. Kidneys and ureters appear unremarkable. No solid intra-renal mass is seen. No significant bowel wall thickening. No free air. No significant stranding seen in the mesentery. Appendix is not identified but there is no inflammatory process in the right or quadrant. Mild colonic stool burden. Aorta is normal caliber and there is a mild amount of atherosclerotic calcifications noted in the aorta and major branch vessels. Genital organs are unremarkable. Urinary bladder is normal. No acute osseous findings. No lymphadenopathy. IMPRESSION: No acute abnormality of the abdomen/pelvis. Mild colonic stool burden. Authenticated and [facility] Dictated By: Dipak Galan Transcribed By: Transcribed On: 01/29/2023 6:24 PM Electronically signed by: Dipak Galan 01/29/2023 Thank you for referring NELA VILLELA to [facility]. Legally authenticated by EMMETT Barry 2023-01-29 18:24:10 us Generic Alvin Provider IMG CT PROCEDURES Fi nal Result documented in this encounter Visit Diagnoses Not on filedocumented in this encounter
[2024-12-28 08:14] LABS: FSH 9.7 mIU/mL (.)
== END 2024-12-26 23:59 | disposition home or self-care (01) ==
LOC: LAB.DROPOF 12-27 13:30
PROVIDERS: PCP Family Medicine; Visit Provider Family Medicine
DX: E03.9 Hypothyroidism, unspecified (principal); I10 Essential (primary) hypertension; R53.83 Other fatigue; R61 Generalized hyperhidrosis; E78.5 Hyperlipidemia, unspecified; D64.9 Anemia, unspecified
CPT/HCPCS: 80053; 82728; 83001; 83540; 83550; 84443; 85025